=== PATIENT | male | born 1990 ===

== ENCOUNTER 2017-06-17 17:04 | Observation (INO) | payer BC, MEDICAID ==
--- NOTE | 2017-06-17 17:30 | ED PDOC ---
Arrival/HPI - General Chief Complaint: Abdominal Pain Time Seen by Provider: 06/17/17 17:19 Historian: Patient - History of Present Illness Narrative History of Present Illness (Text): 06/17/17 17:51 A 26 year old male presents to the emergency department complaining of epigastric discomfort since yesterday, after eating dinner last night, currently resolved. Reports relief with belching. Patient notes discomfort worse with movement. Notes family history of diabetes and gallstones. Patient denies any chest pain, back pain, shoulder pain, nausea, diarrhea, fever, urinary symptoms, cough or any other complaints at this time. Symptom Onset: Sudden Symptom Course: Unchanged Activities at Onset: Rest Context: Home Past Medical History - Provider Review Nursing Documentation Reviewed: Yes - Infectious Disease Hx of Infectious Diseases: None - Tetanus Immunization Tetanus Immunization: Unknown - Cardiac Hx Cardiac Disorders: No - Pulmonary Hx Respiratory Disorders: Yes Hx Asthma: Yes - Neurological Hx Neurological Disorder: No - HEENT Hx HEENT Disorder: No - Renal Hx Renal Disorder: No - Endocrine/Metabolic Hx Endocrine Disorders: No - Hematological/Oncological Hx Blood Disorders: No - Integumentary Hx Dermatological Disorder: No - Musculoskeletal/Rheumatological Hx Musculoskeletal Disorders: No - Gastrointestinal Hx Gastrointestinal Disorders: No - Genitourinary/Gynecological Hx Genitourinary Disorders: No - Psychiatric Hx Psychophysiologic Disorder: No Hx Depression: No Hx Emotional Abuse: No Hx Physical Abuse: No Hx Substance Use: No - Past Surgical History Past Surgical History: No Previous - Surgical History Hx Tonsillectomy: Yes - Anesthesia Hx Anesthesia: Yes Hx Anesthesia Reactions: No Hx Malignant Hyperthermia: No - Suicidal Assessment Feels Threatened In Home Enviroment: No Family/Social History - Physician Review Nursing Documentation Reviewed: Yes Family/Social History: No Known Family HX Smoking Status: Light Smoker < 10 Cigarettes Daily Hx Alcohol Use: Yes Frequency of alcohol use: Socially Hx Substance Use: No Hx Substance Use Treatment: No Allergies/Home Meds Allergies/Adverse Reactions: Allergies No Known Allergies Allergy (Verified 06/17/17 17:05) Home Medications: Home Meds Medication Instructions Recorded Confirmed No Known Home Med 06/17/17 06/17/17 Review of Systems - Review of Systems Constitutional: absent: Fatigue, Fevers Eyes: absent: Vision Changes ENT: absent: Hearing Changes, Sore Throat, Rhinorrhea Respiratory: absent: SOB, Cough Cardiovascular: absent: Chest Pain, Edema, Calf Pain, HAWKINS Gastrointestinal: Abdominal Pain, Other (epigastric discomfort). absent: Diarrhea, Nausea, Hematochezia Genitourinary Male: absent: Dysuria, Frequency, Hematuria Musculoskeletal: absent: Back Pain, Neck Pain, Other (shoulder pain) Skin: absent: Rash Neurological: absent: Headache, Dizziness, Focal Weakness, Disequilibrium Endocrine: absent: Polyuria Physical Exam - Physical Exam Narrative Physical Exam (Text): 06/17/17 17:48 Head: Atraumatic. Normocephalic. Eyes: PERRL. EOMI. Conjunctivae are not pale. ENT: Mucous membranes are moist and intact. Oropharynx is clear and symmetric. Neck: Supple. Full ROM. No JVD. No lymphadenopathy. Cardiovascular: tachycardic. Distal pulses are 2+ and symmetric. Pulmonary/Chest: No evidence of respiratory distress. Clear to auscultation bilaterally. No wheezing, rales or rhonchi. Abdominal: obese. no focal tenderness. Back: No CVA tenderness. Extremities: No edema. No cyanosis. No clubbing. Full range of motion in all extremities. No calf tenderness. Skin: Skin is warm and dry. No petechiae. No purpura. Neurological: Alert, awake, and oriented to person, place, time, and situation. Normal speech. Motor and sensory exam intact. Psychiatric: Good eye contact. Normal interaction, affect, and behavior. Vital Signs Reviewed: Yes Vital Signs Temp Pulse Resp BP Pulse Ox 06/17/17 17:10 98.2 F 107 H 21 150/82 97 Temperature: Afebrile Blood Pressure: Normal Pulse: Tachycardic Respiratory Rate: Normal Appearance: Positive for: Well-Appearing, Non-Toxic, Comfortable Pain Distress: None Mental Status: Positive for: Alert and Oriented X 3 Medical Decision Making ED Course and Treatment: 06/17/17 17:27 Impression: A 26 year old male with epigastric discomfort. Differential Diagnosis included but are not limited to: gastritis vs. reflux vs. gallstones Plan: -- EKG -- chest xray -- US abdomen -- labs -- Urinalysis -- Pepcid, IV fluids -- Reassess and disposition Progress Notes: Patient states symptoms are associated with belching sensation. On exam, no respiratory distress. No pleuritic pain. No calf pain or swelling. Given acute onset of upper abdominal discomfort, ultrasound ordered. 06/17/17 18:29 chest xray: Creator : Dario Li MD IMPRESSION: No active disease. US Abdomen Complete FINDINGS: Liver: Liver with increased echogenicity. Liver is 16.5 cm. No intrahepatic bile duct dilation. Gallbladder: Gallbladder wall thickness is 2.8 mm. No gallstones. Common bile duct: Common bile duct 3.3 mm. No stones. No dilation. Pancreas: Unremarkable as visualized. Kidneys: Right kidney is 12.4 cm. Left kidney is 11.5 cm. No stones. No hydronephrosis. Spleen: Spleen is 9.8 cm. Aorta: Aorta and IVC are not well seen. Inferior vena cava: See above. IMPRESSION: Hepatic steatosis. No gallstones or biliary obstruction. Limited study secondary to obesity. Dictated and Authenticated by: Kye Zuniga MD 06/17/2017 7:13 PM Eastern Time ([place] & [place]) Patient's LFTs elevated. Ultrasound reading reviewed. No prior recent labs for comparison. Hyperglycemia, although denies known hx of diabetes. Patient's EKG unremarkable. Denies chest pain or sob. Pain peristent, waxes and wanes. Due to persistent pain with abnormal lfts, ultrasound, will admit for observation, gi consultation. D/W Dr. Thien Henley covering for hospitalist. - Lab Interpretations Lab Results: 06/17/17 17:50 06/17/17 17:50 Lab Results 06/17/17 17:50: Sodium 137, Potassium 4.4, Chloride 97 L, Carbon Dioxide 30, Anion Gap 15, BUN 11, Creatinine 0.5 L, Est GFR ( Amer) > 60, Est GFR ( Non-Af Amer) > 60, Random Glucose 286 H, Calcium 9.5, Total Bilirubin 0.9, AST 187 H, ALT 229 H, Alkaline Phosphatase 84, Lactate Dehydrogenase 847 H, Total Creatine Kinase 54, Troponin I < 0.01, Total Protein 8.0, Albumin 3.8, Globulin 4.2, Albumin/Globulin Ratio 0.9 L, Amylase 59, Lipase 59 06/17/17 17:50: PT 11.7, INR 1.03, APTT 30.4 06/17/17 17:50: WBC 10.1, RBC 4.96, Hgb 13.5 L, Hct 42.0, MCV 84.7, MCH 27.2, MCHC 32.1, RDW 14.5, Plt Count 222, MPV 10.7, Gran % 70.3 H, Lymph % (Auto) 19.9 L, [place] % (Auto) 4.9, Eos % (Auto) 4.7, Baso % (Auto) 0.2, Gran # 7.11 H, Lymph # (Auto) 2.0, [place] # (Auto) 0.5, Eos # (Auto) 0.5, Baso # (Auto) 0.02 I have reviewed the lab results: Yes - RAD Interpretation Radiology Orders: 06/17/17 17:37 CHEST PORTABLE [RAD] Stat ABDOMEN COMPLETE [US] Stat - EKG Interpretation EKG Interpretation (Text): 06/17/17 19:30 EKG at 17:37 sinus tachycardia rate of [address] elevations Interpreted by ED Physician: Yes Type: 12 lead EKG - Medication Orders Current Medication Orders: Heparin Sodium (Porcine) (Heparin) 5,000 units SC Q12 MAYRA PRN Reason: Protocol Sodium Chloride (Sodium Chloride 0.9%) 1,000 mls @ 100 mls/hr IV .Q10H MAYRA Last Admin: 06/17/17 18:03 Dose: 100 mls/hr eMAR Start Stop Document 06/17/17 18:03 GMD (Rec: 06/17/17 18:03 [facility]) Intravenous Solution Start Date 06/17/17 Start Time 18:03 Insulin Human Lispro (Humalog Med) 0 units SC ACHS MAYRA PRN Reason: Protocol Pantoprazole Sodium (Protonix Ec Tab) 40 mg PO 0600 MAYRA Discontinued Medications Famotidine (Pepcid) 20 mg IVP STAT STA Stop: 06/17/17 17:38 Last Admin: 06/17/17 18:03 Dose: 20 mg IVP Administration Document 06/17/17 18:03 GMD (Rec: 06/17/17 18:03 D [facility]) Charges for Administration # of IVP Administrations 1 Sodium Chloride (Sodium Chloride 0.9%) 500 mls @ 1,000 mls/hr IV .Q30M STA Stop: 06/17/17 21:53 - Scribe Statement The provider has reviewed the documentation as recorded by the Scribe Belqes Mee Provider Lenny Attestation: All medical record entries made by the Lenny were at my direction and personally dictated by me. I have reviewed the chart and agree that the record accurately reflects my personal performance of the history, physical exam, medical decision making, and the department course for this patient. I have also personally directed, reviewed, and agree with the discharge instructions and disposition. Disposition/Present on Arrival - Present on Arrival Any Indicators Present on Arrival: Yes History of DVT/PE: No History of Uncontrolled Diabetes: Yes Urinary Catheter: No History of Decub. Ulcer: No History Surgical Site Infection Following: None - Disposition
[2017-06-17] MEDS: Sodium Chloride 0.9% 1,000 ML IV SCH (18:03)
[2017-06-17 18:09] LABS: BASO # 0.02 K/mm3 (0.0-2.0); BASO % 0.2 % (0.0-3.0); EOS # 0.5 (0.0-0.7); EOS % 4.7 % (1.5-5.0); GRAN # 7.11 (1.4-6.5); GRAN % 70.3 % (50.0-68.0); HEMOGLOBIN 13.5 g/dL (14.0-18.0); LYMPH % 19.9 % (22.0-35.0); MEAN CELL VOLUME 84.7 fl (80.0-105.0); MEAN CORPUSCULAR HEMOGLOBIN 27.2 pg (25.0-35.0); MEAN CORPUSCULAR HGB CONC 32.1 g/dl (31.0-37.0); MEAN PLATELET VOLUME 10.7 fl (7.0-11.0); MONO # 0.5 (0.1-0.6); MONO % 4.9 % (1.0-6.0); RBC 4.96 10^6/uL (3.5-6.1); RED CELL DISTRIBUTION WIDTH 14.5 % (11.5-14.5); WHITE BLOOD COUNT 10.1 10^3/ul (4.5-11.0)
--- NOTE | 2017-06-17 18:27 | RAD ---
HISTORY: Shortness of breath. COMPARISON: No prior. FINDINGS: LUNGS: No active pulmonary disease. PLEURA: No significant pleural effusion identified, no pneumothorax apparent. CARDIOVASCULAR: No radiographic findings to suggest acute or significant cardiovascular disease. OSSEOUS STRUCTURES: No significant abnormalities. VISUALIZED UPPER ABDOMEN: Normal. OTHER FINDINGS: None. IMPRESSION: No active disease.
[2017-06-17 18:31] LABS: TROPONIN I < 0.01 ng/mL
[2017-06-17 18:32] LABS: ALB/GLOB RATIO 0.9 (1.1-1.8); ALBUMIN 3.8 g/dL (3.0-4.8); ALT/SGPT 229 U/L (7-56); AMYLASE 59 U/L (35-125); AST/SGOT 187 U/L (17-59); BLOOD UREA NITROGEN 11 mg/dL (7-21); CALCIUM 9.5 mg/dL (8.4-10.5); GFR AFRICAN-AMERICAN > 60; GFR NON-AFRICAN AMERICAN > 60; LIPASE 59 U/L (23-300)
[2017-06-17 18:34] LABS: INR 1.03 (0.93-1.08); PARTIAL THROMBOPLASTIN TIME 30.4 Seconds (25.1-36.5); PROTHROMBIN TIME 11.7 SECONDS (9.4-12.5)
[2017-06-17] MEDS ORDERED: Sodium Chloride 0.9% 500 ML IV STA (21:24)
--- NOTE | 2017-06-17 22:14 | CP.PCM.HP ---
<Michael Adams - Last Filed: 06/17/17 23:17> History of Present Illness - History of Present Illness History of Present Illness: 26 year old male with past medical history of obesity presents with abdominal pain. Patient states he has pain located in his right upper abdomen that began around 10 pm yesterday. He describes the pain as a 7/10 and says he has a bloated sensation. Patient denies any radiation of the pain.He states he has some relief when he burps and some antacids have helped. Last meal before when he felt the initial pain yesterday was eggs and rice. Today around 1pm he ate [employer] and it did not worsen the pain. Patient states he had similar episode before for which he received some pain medication. Patient does not report any chest pain, shortness of breath, nausea, vomiting, fever, chills, sore throat or any other complaints at this time. 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 Present on Admission - Present on Admission Any Indicators Present on Admission: No Review of Systems - Constitutional Constitutional: absent: Anorexia, Chills, Fatigue, Fever, Headache, Increased Appetite, Weight Loss - EENT Eyes: absent: Blurred Vision, Change in Vision Ears: absent: Disequilibrium, Dizziness Nose/Mouth/Throat: absent: Nasal Congestion, Nasal Discharge, Sore Throat - Cardiovascular Cardiovascular: absent: Chest Pain, Dyspnea, Dyspnea on Exertion - Respiratory Respiratory: absent: Cough, Dyspnea, Dyspnea on Exertion - Gastrointestinal Gastrointestinal: Abdominal Pain. absent: Change in Bowel Habits, Coffee Ground Emesis, Diarrhea, Dysphagia, Heartburn, Nausea, Vomiting - Genitourinary Genitourinary: absent: Change in Urinary Stream, Difficulty Urinating - Musculoskeletal Musculoskeletal: absent: Arthralgias, Numbness, Tingling Past Patient History - Infectious Disease Hx of Infectious Diseases: None - Tetanus Immunizations Tetanus Immunization: Unknown - Past Social History Smoking Status: Light Smoker < 10 Cigarettes Daily - CARDIAC Hx Cardiac Disorders: No - PULMONARY Hx Respiratory Disorders: Yes Hx Asthma: Yes - NEUROLOGICAL Hx Neurological Disorder: No - HEENT Hx HEENT Problems: No - RENAL Hx Chronic Kidney Disease: No - ENDOCRINE/METABOLIC Hx Endocrine Disorders: No - HEMATOLOGICAL/ONCOLOGICAL Hx Blood Disorders: No - INTEGUMENTARY Hx Dermatological Problems: No - MUSCULOSKELETAL/RHEUMATOLOGICAL Hx Musculoskeletal Disorders: No - GASTROINTESTINAL Hx Gastrointestinal Disorders: No - GENITOURINARY/GYNECOLOGICAL Hx Genitourinary Disorders: No - PSYCHIATRIC Hx Psychophysiologic Disorder: No Hx Depression: No Hx Emotional Abuse: No Hx Physical Abuse: No Hx Substance Use: No - SURGICAL HISTORY Hx Tonsillectomy: Yes - ANESTHESIA Hx Anesthesia: Yes Hx Anesthesia Reactions: No Hx Malignant Hyperthermia: No Meds Allergies/Adverse Reactions: Allergies Allergy/AdvReac Type Severity Reaction Status Date / Time No Known Allergies Allergy Verified 06/17/17 17:05 Physical Exam - Constitutional Appears: Non-toxic, No Acute Distress Additional comments: Obese - Head Exam Head Exam: ATRAUMATIC, NORMAL INSPECTION, NORMOCEPHALIC - Eye Exam Eye Exam: EOMI, Normal appearance - ENT Exam ENT Exam: Mucous Membranes Moist - Neck Exam Neck exam: Negative for: Lymphadenopathy, Tenderness - Respiratory Exam Respiratory Exam: Clear to Auscultation Bilateral, NORMAL BREATHING PATTERN - Cardiovascular Exam Cardiovascular Exam: REGULAR RHYTHM, +S1, +S2 - GI/Abdominal Exam GI & Abdominal Exam: Normal Bowel Sounds, Tenderness. absent: Guarding Additional comments: RUQ tenderness to palpation, negative murphys - Extremities Exam Extremities exam: Positive for: pedal edema, pedal pulses present - Neurological Exam Neurological exam: Alert, Oriented x3 - Skin Skin Exam: Normal Color Results - Vital Signs Recent Vital Signs: Last Vital Signs Temp 98.2 F 06/17/17 17:10 Pulse 107 H 06/17/17 17:10 Resp 21 06/17/17 17:10 BP 150/82 06/17/17 17:10 Pulse Ox 97 06/17/17 17:10 - Labs Result Diagrams: 06/17/17 17:50 06/17/17 17:50 Assessment & Plan - Assessment and Plan (Free Text) Assessment: 26 year old male with past medical history of obesity presents with abdominal pain. Plan: 1. Persistent Abdominal Pain -EKG pending official read -Chest xray pending official read -Abdominal US: Hepatic steatosis. No gallstones or biliary obstruction. Limited study secondary to obesity. -GI consulted, Deedee, markie recs -liquid diet -toradol for Pain PRN 2. Elevated LFTs -likely secondary to hepatic steatosis or possible hypertriglyerides -GI consulted, markie Mark recs -NS@100 -lipid panel pending 3. Elevated Blood Sugar -Hemoglobin A1C pending -ISS medium with ACHS -continue to monitor GI/DVT -protonix -heparin SC <Garrett Henley - Last Filed: 06/18/17 02:19> Results - Vital Signs Recent Vital Signs: Last Vital Signs Temp 98.2 F 06/17/17 17:10 Pulse 98 H 06/17/17 22:45 Resp 18 06/17/17 22:45 BP 145/86 06/17/17 22:45 Pulse Ox 97 06/17/17 22:45 - Labs Result Diagrams: 06/17/17 17:50 06/17/17 17:50 Labs: Laboratory Results - last 24 hr 06/17/17 22:01 Triglycerides 313 H Cholesterol 195 LDL Cholesterol Direct 123 HDL Cholesterol 28 L
--- NOTE | 2017-06-17 23:25 | CARD ---
APPROVED REPORT EKG Measurement Heart [id number] <Conclusion> Sinus tachycardia Otherwise normal ECG
[2017-06-18 00:23] LABS: HDL CHOLESTEROL 28 mg/dL (29-60)
[2017-06-18 00:33] LABS: LDL CHOLESTEROL 123 mg/dL (0-129)
[2017-06-18 05:28] VITALS: BMI 65.7
[2017-06-18] MEDS: Sodium Chloride 0.9% 1,000 ML IV SCH ×2 (05:38→06:06)
[2017-06-18] MEDS ORDERED: Pantoprazole 40 mg EC Tab PO SCH (06:00)
[2017-06-18 07:58] VITALS: BP 117/68; PULSE 103; RESP 20; TEMP 97.8; O2SAT 93
[2017-06-18] MEDS: Insulin Lispro (humaLOG) MEDIUM Coverage SC SCH ×2 (08:00→11:50)
--- NOTE | 2017-06-18 09:17 | US ---
HISTORY: Upper abdominal pain. COMPARISON: None. TECHNIQUE: Sonographic evaluation of the abdomen. FINDINGS: LIVER: Measures 11.2 x 16.5 cm. Hepatopedal blood flow. Fatty infiltration manifest ultrasonographically as increased elects echogenicity of the liver parenchyma. No mass. No intrahepatic bile duct dilatation. GALLBLADDER: Play classical music COMMON BILE DUCT: Measures 3.3 mm. No stones. No dilatation. PANCREAS: Unremarkable as visualized. No mass. No ductal dilatation. RIGHT KIDNEY: Measures 6.5 x 12.4cm. Normal echogenicity. No calculus, mass, or hydronephrosis. LEFT KIDNEY: Measures 5.4 x 11.5cm. Normal echogenicity. No calculus, mass, or hydronephrosis. SPLEEN: Normal in size and contour. No mass. AORTA: No aneurysmal dilatation. IVC: Unremarkable. OTHER FINDINGS: None. IMPRESSION: Hepatomegaly/hepatic steatosis. Otherwise unremarkable study.
[2017-06-18 09:25] LABS: BASO # 0.04 K/mm3 (0.0-2.0); BASO % 0.4 % (0.0-3.0); EOS # 0.5 (0.0-0.7); EOS % 5.6 % (1.5-5.0); GRAN # 6.56 (1.4-6.5); GRAN % 68.8 % (50.0-68.0); LYMPH % 20.5 % (22.0-35.0); MEAN CELL VOLUME 85.5 fl (80.0-105.0); MEAN CORPUSCULAR HEMOGLOBIN 27.3 pg (25.0-35.0); MEAN CORPUSCULAR HGB CONC 31.9 g/dl (31.0-37.0); MEAN PLATELET VOLUME 11.2 fl (7.0-11.0); MONO # 0.5 (0.1-0.6); MONO % 4.7 % (1.0-6.0); RBC 4.77 10^6/uL (3.5-6.1); RED CELL DISTRIBUTION WIDTH 14.6 % (11.5-14.5); WHITE BLOOD COUNT 9.5 10^3/ul (4.5-11.0)
[2017-06-18 09:42] LABS: ALB/GLOB RATIO 0.9 (1.1-1.8); ALBUMIN 3.5 g/dL (3.0-4.8); ALT/SGPT 244 U/L (7-56); AST/SGOT 233 U/L (17-59); BLOOD UREA NITROGEN 10 mg/dL (7-21); CALCIUM 9.4 mg/dL (8.4-10.5); GFR AFRICAN-AMERICAN > 60; GFR NON-AFRICAN AMERICAN > 60
[2017-06-18] MEDS ORDERED: Enoxaparin 40 mg Syringe SC SCH (10:30)
--- NOTE | 2017-06-18 11:59 | CON ---
DATE: 06/18/2017 HISTORY OF PRESENT ILLNESS: I saw Mr. Del Rosario this morning. He is a 26-year-old morbidly obese male with past medical history consisting only of transitory excessive abdominal pain in the area of the right upper quadrant. Patient denies any history of gallstones, appendicitis, surgery except for tonsillectomy or any other medical problems including diabetes, hypertension, etc. Patient was never tested for sleep apnea. Patient indicated acute onset of abdominal pain in the right upper quadrant, which lasted several hours, after he ate a mail. Denied any hematemesis or rectal bleeding. He has not had a history of acid reflux. He also related that the right upper quadrant discomfort was relieved somewhat after burping. The pain was described as right upper quadrant going to the epigastric area. Note that, he does not practice antireflux precautions and he drinks significantly before meals on a daily basis. PHYSICAL EXAMINATION: VITAL SIGNS: I reviewed this patient's vital signs. HEENT: Noncontributory. LUNGS: Decreased breath sounds at the bases. HEART: Irregular rhythm. ABDOMEN: Protuberant. No tenderness elicited in any quadrant. Bowel sounds are normal. LABORATORY DATA: Ultrasound reviewed. The bile duct is appears within normal limits, no stones. Review of laboratory data indicates H and H of 13 and 42. INR within normal limits. Review of CMP indicates triglycerides elevated to the level of 313, cholesterol 195, LDL 123. Patient has normal bilirubin with a glucose of 286. AST/ALT ratio 187/229, alkaline phosphatase 84. Last lipase is 59. Chest x-ray was negative for any active disease. OVERALL ASSESSMENT: This is a 26-year-old white male morbidly obese, evaluated for transitory right upper quadrant epigastric discomfort. On examination, patient had denied any abdominal pain anywhere, but that also he does not practice antireflux precautions. Review of liver function test indicates elevated transaminases. He has a negative ultrasound, would suggest these are elevated on the basis of hepatic steatosis. Note that, also the patient's glucose is in diabetic range. In order to clarify this further, liver biopsy might be contemplated on an outpatient basis. Also, would suggest a hepatitis profile for completeness sake. I reviewed the issues regarding the patient labs at the bedside and I suggested the patient develop a relationship with a primary care physician. He expressed a desire to be evaluated at a bariatric treatment center for weight control. Note that, his last weight was pushing 390. I advised him to possibly consult the [facility] since they have a bariatric center located there and results have been positive uniformly. Since the patient has no symptoms, suggest possibly discharge today with advise on antireflux precautions and use a H2 franko or proton pump inhibitor for epigastric related pain. Note that, he must see a PCP and GI on an outpatient basis. Morgan Mark DO, PhD MICAELA
[2017-06-19 08:17] LABS: HEPATITIS B SURFACE AG Negative (NEGATIVE)
[2017-06-19 08:25] LABS: HEPATITIS A IGM NEGATIVE (NEGATIVE); HEPATITIS B CORE AB NEGATIVE (NEGATIVE)
[2017-06-19 08:35] LABS: HEPATITIS C ANTIBODY NEGATIVE (NEGATIVE)
--- NOTE | 2017-06-19 17:07 | CP.PCM.DIS ---
Provider - Provider Date of Admission: 06/17/17 21:23 Attending physician: Matilda Hollingsworth MD Primary care physician: Sharifa Mace APN Consults: GI: Deedee Time Spent in preparation of Discharge (in minutes): 42 Diagnosis - Discharge Diagnosis (1) GERD (gastroesophageal reflux disease) Status: Acute Hospital Course - Lab Results Lab Results: Most Recent Lab Values WBC 9.5 10^3/ul (4.5-11.0) 06/18/17 09: RBC 4.77 10^6/uL (3.5-6.1) 06/18/17 09:22 Hgb 13.0 g/dL (14.0-18.0) L 06/18/17 09: Hct 40.8 % (42.0-52.0) L 06/18/17: MCV 85.5 fl (80.0-105.0) 06/18/17 09: MCH 27.3 pg (25.0-35.0) 06/18/17: MCHC 31.9 g/dl (31.0-37.0) 06/18/17 09: RDW 14.6 % (11.5-14.5) H 06/18/17 09: Plt Count 221 10^3/uL (120.0-450.0) 06/18/17:22 MPV 11.2 fl (7.0-11.0) H 06/18/17 09:22 Gran % 68.8 % (50.0-68.0) H 06/18/17 09:22 Lymph % (Auto) 20.5 % (22.0-35.0) L 06/18/17 09:22 [place] % (Auto) 4.7 % (1.0-6.0) 06/18/17 09:22 Eos % (Auto) 5.6 % (1.5-5.0) H 06/18/17:22 Baso % (Auto) 0.4 % (0.0-3.0) 06/18/17:22 Gran # 6.56 (1.4-6.5) H 06/18/17 09: Lymph # (Auto) 2.0 (1.2-3.4) 06/18/17 09:22 [place] # (Auto) 0.5 (0.1-0.6) 06/18/17 09:22 Eos # (Auto) 0.5 (0.0-0.7) 06/18/17 09:22 Baso # (Auto) 0.04 K/mm3 (0.0-2.0) 06/18/17 09:22 PT 11.7 SECONDS (9.4-12.5) 06/17/17 17:50 INR 1.03 (0.93-1.08) 06/17/17 17:50 APTT 30.4 Seconds (25.1-36.5) 06/17/17 17:50 Sodium 140 mmol/L (132-148) 06/18/17 09:22 Potassium 4.6 mmol/L (3.6-5.0) 06/18/17 09:22 Chloride 99 mmol/L (98-107) 06/18/17 09:22 Carbon Dioxide 31 mmol/L (21-33) 06/18/17 09:22 Anion Gap 15 (10-20) 06/18/17 09:22 BUN 10 mg/dL (7-21) 06/18/17 09:22 Creatinine 0.6 mg/dl (0.8-1.5) L 06/18/17 09:22 Est GFR ( Amer) > 60 06/18/17 09:22 Est GFR (Non-Af Amer) > 60 06/18/17 09:22 POC Glucose (mg/dL) 132 mg/dL (65-110) H 06/18/17 11:21 Random Glucose 155 mg/dL (70-110) H 06/18/17 09:22 Hemoglobin A1c 8.0 % (4.2-6.5) H 06/17/17 23:00 Calcium 9.4 mg/dL (8.4-10.5) 06/18/17 09:22 Total Bilirubin 1.3 mg/dL (0.2-1.3) 06/18/17 09:22 AST 233 U/L (17-59) H D 06/18/17 09:22 ALT 244 U/L (7-56) H 06/18/17 09:22 Alkaline Phosphatase 76 U/L (38-126) 06/18/17 09:22 Lactate Dehydrogenase 847 U/L (333-699) H 06/17/17 17:50 Total Creatine Kinase 54 U/L (35-230) 06/17/17 17:50 Troponin I < 0.01 ng/mL 06/17/17 17:50 Total Protein 7.2 g/dL (5.8-8.3) 06/18/17 09:22 Albumin 3.5 g/dL (3.0-4.8) 06/18/17 09:22 Globulin 3.7 gm/dL 06/18/17 09:22 Albumin/Globulin Ratio 0.9 (1.1-1.8) L 06/18/17 09:22 Triglycerides 313 mg/dL (35-160) H 06/17/17 22:01 Cholesterol 195 mg/dL (130-200) 06/17/17 22:01 LDL Cholesterol Direct 123 mg/dL (0-129) 06/17/17 22:01 HDL Cholesterol 28 mg/dL (29-60) L 06/17/17 22:01 Amylase 59 U/L (35-125) 06/17/17 17:50 Lipase 59 U/L (23-300) 06/17/17 17:50 Hepatitis A IgM Ab Negative (NEGATIVE) 06/18/17 06:45 Hep Bs Antigen Negative (NEGATIVE) 06/18/17 06:45 Hep B Core IgM Ab Negative (NEGATIVE) 06/18/17 06:45 Hepatitis C Antibody Negative (NEGATIVE) 06/18/17 06:45 - Hospital Course Hospital Course: 26 year old male with past medical history of obesity presented with abdominal pain. He described the pain as a 7/10 and says he has a bloated sensation. Patient was noted to have tachycardia but was afebrile and was otherwise HDS. He was found to hyperglycemia and elevated LFT's on CMP. Sliding scale insulin was started with accuchecks. An EKG showed sinus tachycardia. A chest x-ray showed no active disease. An abdominal ultrasound showed hepatic steatosis. Patient was started on liquid diet that was progressed to regular diet with good tolerance. He was given toradol for pain control, protonix for GI prophylaxis and heparin for DVT prophylaxis. GI was consulted and recommended patient be discharged on anti-reflux therapy. He was given a list of primary care doctors and agreed to find one to follow up with. He was discharged on 02/23 with prescriptions for protonix and metformin with instructions to follow up with a PCP of his choice. - Date & Time of H&P Date of H&P: 06/17/17 Time of H&P: 22:14 Discharge Exam - Head Exam Head Exam: ATRAUMATIC, NORMAL INSPECTION, NORMOCEPHALIC - Eye Exam Eye Exam: EOMI, Normal appearance, PERRL - Neck Exam Neck exam: Full Rom - Respiratory Exam Respiratory Exam: Clear to PA & Lateral, NORMAL BREATHING PATTERN, UNREMARKABLE - Cardiovascular Exam Cardiovascular Exam: REGULAR RHYTHM - GI/Abdominal Exam GI & Abdominal Exam: Normal Bowel Sounds, Unremarkable - Extremities Exam Extremities exam: full ROM, normal capillary refill, pedal pulses present Additional comments: Negative homans sign b/l - Neurological Exam Neurological exam: Alert, CN II-XII Intact, Normal Gait, Oriented x3, Reflexes Normal - Psychiatric Exam Psychiatric exam: Normal Affect, Normal Mood - Skin Skin Exam: Dry, Intact, Normal Color, Warm Discharge Plan - Discharge Medications Prescriptions: metFORMIN [glucOPHAGE] 500 mg PO BID #28 tab Pantoprazole [Protonix EC Tab] 40 mg PO 0600 #14 ect - Follow Up Plan Condition: GOOD Disposition: HOME/ ROUTINE Instructions: How to Check Your Blood Sugar (DC), Diabetic Foot Care (DC), Diabetes Mellitus Type 2 in Adults (DC), Basic Carbohydrate Counting (DC), Liver Profile (GEN), Gastroesophageal Reflux Disease (DC), Acute Abdominal Pain (DC), Non-Alcoholic Fatty Liver Disease (DC), Hyperlipidemia (DC), Epigastric Pain (GEN) Additional Instructions: Please seek primary care physician upon discharge, several contact numbers for PCP's in [place] have been provided for you Please take all medications as prescribed If your symptoms should persist or worsen, please seek emergency medical attention Referrals: Becca Mcmanus MD [Staff Provider] - Sacha Arreguin MD [Staff Provider] - Sekou Waters MD [Staff Provider] - Rafael Brand MD [Staff Provider] - Dario Mujica DO [Staff Provider] - Sharifa Mace APN [Primary Care Provider] -
== END 2017-06-18 15:51 | disposition home or self-care (01) ==
LOC: ED 17:04 → ERH 21:23 → 5RNO 23:34
PROVIDERS: ADMIT Internal Medicine; ATTEND Internal Medicine
DX: K21.9 Gastro-esophageal reflux disease without esophagitis (principal); R73.9 Hyperglycemia, unspecified; E66.01 Morbid (severe) obesity due to excess calories; J45.909 Unspecified asthma, uncomplicated; K76.0 Fatty (change of) liver, not elsewhere classified; Z83.3 Family history of diabetes mellitus; F17.210 Nicotine dependence, cigarettes, uncomplicated; Z68.44 Body mass index [BMI] 60.0-69.9, adult
CPT/HCPCS: 36415; 71045; 76700; 80053; 80061; 80074; 82150; 82550; 82948; 83036; 83615; 83690; 84484; 85025; 85610; 85730; 93005; 96374; 99285; G0378; J1644; J1650; J7040

== ENCOUNTER 2017-08-12 18:37 | Emergency (ER) | payer BC ==
[2017-08-12 18:37] VITALS: BMI 65.7
[2017-08-12] MEDS ORDERED: cefTRIAXone (Rocephin) 1 gm Inj IM STA (19:11)
[2017-08-12] MEDS ORDERED: Oxycodone/Acetaminophen 5/325 mg Tab PO STA (19:11)
[2017-08-12] MEDS ORDERED: Tmp-Smz 800 mg-160 mg DS Tab PO STA (19:11)
--- NOTE | 2017-08-12 19:16 | ED PDOC ---
Arrival/HPI - General Chief Complaint: Abnormal Skin Integrity Time Seen by Provider: 08/12/17 19:10 Historian: Patient - History of Present Illness Narrative History of Present Illness (Text): 08/12/17 19:14 26 year old male, newly onset of diabetes and on the oral medication, nkda, complaining of multiple skin abscess on the body x 2 days. Pt. stated that it started off as a small pimple, then the redness begin, no fever or chills, no headache or night sweat, no rash, has closely follow up with the pmd and opthalmologist, no chest pain or shortness of breath, no palpitation, no other medical or psychological complaints. Past Medical History - Provider Review Nursing Documentation Reviewed: Yes - Infectious Disease Hx of Infectious Diseases: None - Tetanus Immunization Tetanus Immunization: Unknown - Cardiac Hx Cardiac Disorders: No - Pulmonary Hx Respiratory Disorders: Yes Hx Asthma: Yes - Neurological Hx Neurological Disorder: No - HEENT Hx HEENT Disorder: No - Renal Hx Renal Disorder: No - Endocrine/Metabolic Hx Endocrine Disorders: No - Hematological/Oncological Hx Blood Disorders: No - Integumentary Hx Dermatological Disorder: No - Musculoskeletal/Rheumatological Hx Musculoskeletal Disorders: No - Gastrointestinal Hx Gastrointestinal Disorders: No - Genitourinary/Gynecological Hx Genitourinary Disorders: No - Psychiatric Hx Psychophysiologic Disorder: No Hx Depression: No Hx Emotional Abuse: No Hx Physical Abuse: No Hx Substance Use: No - Past Surgical History Past Surgical History: No Previous - Surgical History Hx Tonsillectomy: Yes - Anesthesia Hx Anesthesia: Yes Hx Anesthesia Reactions: No Hx Malignant Hyperthermia: No - Suicidal Assessment Feels Threatened In Home Enviroment: No Family/Social History - Physician Review Nursing Documentation Reviewed: Yes Family/Social History: Unknown Family HX Smoking Status: Unknown If Ever Smoked Hx Alcohol Use: No Hx Substance Use: No Hx Substance Use Treatment: No Allergies/Home Meds Allergies/Adverse Reactions: Allergies No Known Allergies Allergy (Verified 08/12/17 19:06) Review of Systems - Review of Systems Constitutional: absent: Fatigue, Fevers Eyes: absent: Vision Changes ENT: absent: Hearing Changes Respiratory: absent: SOB, Cough Cardiovascular: absent: Chest Pain Gastrointestinal: absent: Abdominal Pain, Nausea, Vomiting Skin: Rash, Skin Lesions, Cellulitis. absent: Pruritis, Laceration, Abscess, Ulcer Neurological: absent: Headache, Dizziness Psychiatric: absent: Anxiety, Depression, Suicidal Ideation Physical Exam Vital Signs Reviewed: Yes Vital Signs Temp Pulse Resp BP Pulse Ox 08/12/17 22:09 97 H 16 133/92 H 99 08/12/17 20:09 98.6 F 108 H 08/12/17 19:33 117 H 08/12/17 19:00 98.9 F 116 H 18 121/86 97 Temperature: Afebrile Blood Pressure: Normal Pulse: Tachycardic Respiratory Rate: Normal Appearance: Positive for: Well-Appearing, Non-Toxic, Comfortable Pain Distress: Moderate Mental Status: Positive for: Alert and Oriented X 3 - Systems Exam Head: Present: Atraumatic, Normocephalic Pupils: Present: PERRL Extroacular Muscles: Present: EOMI Conjunctiva: Present: Normal Mouth: Present: Moist Mucous Membranes Neck: Present: Normal Range of Motion Respiratory/Chest: Present: Clear to Auscultation, Good Air Exchange. No: Respiratory Distress, Accessory Muscle Use Cardiovascular: Present: Regular Rate and Rhythm, Normal S1, S2. No: Murmurs Abdomen: No: Tenderness, Distention, Peritoneal Signs Back: Present: Normal Inspection Upper Extremity: Present: Normal Inspection. No: Cyanosis, Edema Lower Extremity: Present: Normal Inspection. No: Edema Neurological: Present: GCS=15, Speech Normal, Motor Func Grossly Intact, Gait Normal, Memory Normal Skin: Present: Warm, Dry, Rashes (visibel furunle lesion noted on the lt. flank/ rt. lower back and lt. medial thigh with approx. 3cm diameter erythematous, no streaking, no ulcers, no bullseye or target signs. ), Normal Color Psychiatric: Present: Alert, Oriented x 3, Normal Insight, Normal Concentration Medical Decision Making ED Course and Treatment: 08/12/17 19:13 -Rocephine IM/bactrim ds/motrin/percocet -observe and reassess 08/12/17 21:05 -Labs are non-significant with no elevation of wbc, Glucose 429 (IV insulin and IVF ordered, corrected sodium should be around 136-139) -Observe and reassess 08/12/17 23:20 -Vital are stable, Labs repeated and Na corrected, Potassium 3.0 with potassium chloride 40meq po ordered. -FS 287 -Discharge home with keflex, bactrim ds, motrin, wash with soap and water, continue your diabete medication, follow up with your own pmd and vp marketing/quality facilitator within 2 days, return to the ER for any new or worsening signs or symptoms. - Lab Interpretations Lab Results: 08/12/17 20:06 08/12/17 22:40 Lab Results 08/12/17 22:40: Sodium 134, Potassium 3.0 L, Chloride 98, Carbon Dioxide 17 L, Anion Gap 22 H, BUN 5 L, Creatinine 0.5 L, Est GFR ( Amer) > 60, Est GFR (Non-Af Amer) > 60, Random Glucose 318 H* D, Calcium 9.0, Total Bilirubin 1.2, AST 37, ALT 106 H, Alkaline Phosphatase 118, Total Protein 7.4, Albumin 3.5, Globulin 3.9, Albumin/Globulin Ratio 0.9 L 08/12/17 20:06: Sodium 131 L, Potassium 3.5 L, Chloride 92 L, Carbon Dioxide 19 L, Anion Gap 24 H, BUN 5 L, Creatinine 0.5 L, Est GFR ( Amer) > 60, Est GFR (Non-Af Amer) > 60, Random Glucose 429 H* D, Calcium 9.6, Total Bilirubin 1.4 H, AST 42, ALT 117 H, Alkaline Phosphatase 130 H D, Total Protein 7.9, Albumin 3.8, Globulin 4.0, Albumin/Globulin Ratio 0.9 L 08/12/17 20:06: WBC 10.7, RBC 5.13, Hgb 14.5, Hct 41.9 L, MCV 81.7 D, MCH 28.3 , MCHC 34.6, RDW 15.0 H, Plt Count 207, MPV 11.9 H, Gran % 67.4, Lymph % (Auto) 20.1 L, [place] % (Auto) 9.9 H, Eos % (Auto) 2.0, Baso % (Auto) 0.6, Gran # 7.24 H , Lymph # (Auto) 2.2, [place] # (Auto) 1.1 H, Eos # (Auto) 0.2, Baso # (Auto) 0.06 - Medication Orders Current Medication Orders: Sodium Chloride (Sodium Chloride 0.9%) 1,000 mls @ 500 mls/hr IV .Q2H MAYRA Last Admin: 08/12/17 21:27 Dose: 500 mls/hr eMAR Start Stop Document 08/12/17 21:27 MS (Rec: 08/12/17 21:27 MS [id number]) Intravenous Solution Start Date 08/12/17 Start Time 21:27 End Date 08/12/17 End time 23:27 Total Infusion Time 120 Discontinued Medications Ceftriaxone Sodium (Rocephin) 1 gm IM STAT STA PRN Reason: Protocol Stop: 08/12/17 19:12 Last Admin: 08/12/17 19:30 Dose: 1 gm IM Administration Charges Document 08/12/17 19:30 MS (Rec: 08/12/17 20:17 MS [id number]) Injection Site MAR Injection Site Left Deltoid Charges for Administration # of IM Administrations 1 Sodium Chloride (Sodium Chloride 0.9%) 1,000 mls @ 999 mls/hr IV .Q1H1M STA Stop: 08/12/17 20:55 Last Admin: 08/12/17 20:17 Dose: 999 mls/hr eMAR Start Stop Document 08/12/17 20:17 MS (Rec: 08/12/17 20:17 MS [id number]) Intravenous Solution Start Date 08/12/17 Start Time 20:17 End Date 08/12/17 End time 21:17 Total Infusion Time 60 Ibuprofen (Motrin Tab) 600 mg PO STAT STA Stop: 08/12/17 19:12 Last Admin: 08/12/17 19:31 Dose: 600 mg MAR Pain/Vitals Document 08/12/17 19:31 MS (Rec: 08/12/17 19:32 MS [id number]) Pain Reassessment Is This A Pain ReAssessment? No Sleep Is patient sleeping during reassessment? No Presence of Pain Presence of Pain Yes Pain Scale Used Pain Scale Used Numeric Location Left, Right or Bilateral Left Upper or Lower Lower Pain Location Body Site Back Description Intermittent Intensity 9 Pain Behavior Moaning Withdrawal from Touch Aggravating Factors Changing Position Insulin Human Regular (Humulin R) 8 units IV STAT STA Stop: 08/12/17 21:04 Last Admin: 08/12/17 21:26 Dose: 8 units eMAR Start Stop Document 08/12/17 21:26 MS (Rec: 08/12/17 21:26 MS [id number]) Intravenous Solution Start Date 08/12/17 Start Time 21:26 End Date 08/12/17 [facility] Blood Glucose Document 08/12/17 21:26 MS (Rec: 08/12/17 21:26 MS [id number]) Blood Glucose Finger Stick Blood Glucose (70-120) 429 Oxycodone/Acetaminophen (Percocet 5/325 Mg Tab) 1 tab PO STAT STA Stop: 08/12/17 19:12 Last Admin: 08/12/17 19:28 Dose: 1 tab MAR Pain Assessment Document 08/12/17 19:28 MS (Rec: 08/12/17 19:31 MS [id number]) Pain Reassessment Is this a pain reassessment? No Sleep Is patient sleeping during reassessment? No Presence of Pain Presence of Pain Yes Pain Scale Used Pain Scale Used Numeric Location Left, Right or Bilateral Left Upper or Lower Lower Pain Location Body Site Back Description Description Intermittent Intensity of Pain at present 9 Pain Behavior Moaning Withdrawal from Touch Aggravating Factors Changing Position Potassium Chloride (K-Dur 20 Meq Er Tab) 40 meq PO STAT STA Stop: 08/12/17 23:15 Trimethoprim/Sulfamethoxazole (Bactrim Ds Tab) 2 tab PO STAT STA PRN Reason: Protocol Stop: 08/12/17 19:12 Last Admin: 08/12/17 19:31 Dose: 2 tab - PA / MODEL DRESSER / Resident Statement / has reviewed & agrees with the documentation as recorded. Disposition/Present on Arrival - Present on Arrival Any Indicators Present on Arrival: No History of DVT/PE: No History of Uncontrolled Diabetes: Yes Urinary Catheter: No History of Decub. Ulcer: No History Surgical Site Infection Following: None - Disposition Have Diagnosis and Disposition been Completed?: Yes Diagnosis: Furuncle, Diabetes mellitus, Hyperglycemia, Hypokalemia Disposition: HOME/ ROUTINE Disposition Time: 19:20 Patient Plan: Discharge Patient Problems: Current Active Problems Problem Status Onset Furuncle Acute Diabetes mellitus Acute Hyperglycemia Acute Hypokalemia Acute Condition: GOOD Additional Instructions: -Discharge home with keflex, bactrim ds, motrin, wash with soap and water, continue your diabete medication, follow up with your own pmd and vp marketing/quality facilitator within 2 days, return to the ER for any new or worsening signs or symptoms. Prescriptions: Cephalexin [cephalexin] 500 mg PO QID #40 cap Ibuprofen [Motrin] 600 mg PO QID PRN #40 tab PRN Reason: Other Sulfamethoxazole/Trimethoprim [Bactrim Ds Tablet] 1 each PO BID #20 tablet Referrals: Magdalene Rosa MD [Medical Doctor] - Follow up with primary Dario Mujica DO [Primary Care Provider] - Follow up with primary Sergey Torres MD [Staff Provider] - Follow up with primary Forms: [facility] ([place]), WORK NOTE
[2017-08-12] MEDS ORDERED: Sodium Chloride 0.9% 1,000 ML IV STA (19:55)
[2017-08-12 20:10] VITALS: TEMP 98.6
[2017-08-12 20:38] LABS: BASO # 0.06 K/mm3 (0.0-2.0); BASO % 0.6 % (0.0-3.0); EOS # 0.2 (0.0-0.7); GRAN # 7.24 (1.4-6.5); GRAN % 67.4 % (50.0-68.0); HEMOGLOBIN 14.5 g/dL (14.0-18.0); LYMPH # 2.2 (1.2-3.4); LYMPH % 20.1 % (22.0-35.0); MEAN CELL VOLUME 81.7 fl (80.0-105.0); MEAN CORPUSCULAR HEMOGLOBIN 28.3 pg (25.0-35.0); MEAN CORPUSCULAR HGB CONC 34.6 g/dl (31.0-37.0); MEAN PLATELET VOLUME 11.9 fl (7.0-11.0); MONO # 1.1 (0.1-0.6); MONO % 9.9 % (1.0-6.0); RBC 5.13 10^6/uL (3.5-6.1); WHITE BLOOD COUNT 10.7 10^3/ul (4.5-11.0)
[2017-08-12 20:59] LABS: ALB/GLOB RATIO 0.9 (1.1-1.8); ALBUMIN 3.8 g/dL (3.0-4.8); ALT/SGPT 117 U/L (7-56); AST/SGOT 42 U/L (17-59); BLOOD UREA NITROGEN 5 mg/dL (7-21); CALCIUM 9.6 mg/dL (8.4-10.5); GFR AFRICAN-AMERICAN > 60; GFR NON-AFRICAN AMERICAN > 60
[2017-08-12] MEDS ORDERED: Insulin Regular 1 UNITS/0.01 ML ML IV STA (21:03)
[2017-08-12] MEDS ORDERED: Sodium Chloride 0.9% 1,000 ML IV SCH (21:15)
[2017-08-12 22:14] VITALS: RESP 16; O2SAT 99
[2017-08-12 23:10] LABS: ALB/GLOB RATIO 0.9 (1.1-1.8); ALBUMIN 3.5 g/dL (3.0-4.8); ALT/SGPT 106 U/L (7-56); AST/SGOT 37 U/L (17-59); BLOOD UREA NITROGEN 5 mg/dL (7-21); GFR AFRICAN-AMERICAN > 60; GFR NON-AFRICAN AMERICAN > 60
[2017-08-12] MEDS ORDERED: Potassium Chloride 20 mEq ER Tab PO STA (23:14)
[2017-08-12 23:34] VITALS: BP 130/88; PULSE 82
== END 2017-08-12 23:33 | disposition home or self-care (01) ==
LOC: ED 18:37
DX: L02.221 Furuncle of abdominal wall (principal); L02.222 Furuncle of back [any part, except buttock and flank]; L02.426 Furuncle of left lower limb; E11.65 Type 2 diabetes mellitus with hyperglycemia; Z79.84 Long term (current) use of oral hypoglycemic drugs; E87.6 Hypokalemia
CPT/HCPCS: 80053; 82948; 85025; 96361; 96372; 96374; 99283; J0696; J7040

== ENCOUNTER 2017-09-24 20:27 | Emergency (ER) | payer BC ==
[2017-09-24 20:27] VITALS: BMI 65.7
[2017-09-24] MEDS ORDERED: TDAP Vaccine 0.5 mL Syr IM ONE (20:44)
[2017-09-24] MEDS ORDERED: Tobramycin 0.3% OPH OINT OS ONE (20:45)
[2017-09-24] MEDS ORDERED: Amoxicillin-Clav 875-125 mg Tab PO STA (20:50)
--- NOTE | 2017-09-24 20:53 | ED PDOC ---
Arrival/HPI - General Chief Complaint: Eye Problem Time Seen by Provider: 09/24/17 20:35 Historian: Patient - History of Present Illness Narrative History of Present Illness (Text): 09/24/17 20:35 pt p/w + 2 days onset of left eye upper eyelid swelling/pain/irritation; no vision changes noted, no photophobia/sensitivity; pt states no fever/chills/ sweats, no cp/sob/palpitations, no abd pain, no n/v, no numbness/tingling, no urinary/bowel changes, no fall/trauma/sick contact, no travel; pt denied any injuries to his eyes recently; pt denied waking in the morning with eye discharge/bleeding; pt has been reading online to use warm compress to be applied to left eye but pt states no significant improvement is noted; pt arrived to Emergency department for further eval pt's without other complaints. PCP: Dr Mujica tetanus: not up to date Time/Duration: < week (2 days) Symptom Onset: Sudden Symptom Course: Worsening Quality: Stabbing, Throbbing Severity Level: Moderate Activities at Onset: Rest Context: Home Past Medical History - Provider Review Nursing Documentation Reviewed: Yes - Travel History Have you recently traveled outside [place] w/in the past 3 mons?: No - Past History Past History: No Previous - Infectious Disease Hx of Infectious Diseases: None - Tetanus Immunization Tetanus Immunization: Unknown - Cardiac Hx Cardiac Disorders: No - Pulmonary Hx Respiratory Disorders: Yes Hx Asthma: Yes - Neurological Hx Neurological Disorder: No - HEENT Hx HEENT Disorder: No - Renal Hx Renal Disorder: No - Endocrine/Metabolic Hx Endocrine Disorders: No - Hematological/Oncological Hx Blood Disorders: No - Integumentary Hx Dermatological Disorder: No - Musculoskeletal/Rheumatological Hx Musculoskeletal Disorders: No - Gastrointestinal Hx Gastrointestinal Disorders: No - Genitourinary/Gynecological Hx Genitourinary Disorders: No - Psychiatric Hx Psychophysiologic Disorder: No Hx Depression: No Hx Emotional Abuse: No Hx Physical Abuse: No Hx Substance Use: No - Past Surgical History Past Surgical History: No Previous - Surgical History Hx Tonsillectomy: Yes - Anesthesia Hx Anesthesia: Yes Hx Anesthesia Reactions: No Hx Malignant Hyperthermia: No - Suicidal Assessment Feels Threatened In Home Enviroment: No Family/Social History - Physician Review Nursing Documentation Reviewed: Yes Family/Social History: No Known Family HX Smoking Status: Light Smoker < 10 Cigarettes Daily Hx Alcohol Use: Yes Hx Substance Use: No Hx Substance Use Treatment: No Allergies/Home Meds Allergies/Adverse Reactions: Allergies No Known Allergies Allergy (Verified 09/24/17 20:39) Review of Systems - Review of Systems Constitutional: Normal. absent: Fatigue, Weight Change, Fevers Eyes: Eye Pain. absent: Vision Changes, Photophobia ENT: Normal Respiratory: Normal. absent: SOB Cardiovascular: Normal. absent: Chest Pain Gastrointestinal: Normal. absent: Abdominal Pain, Nausea, Vomiting Genitourinary Male: Normal Musculoskeletal: Normal Skin: Normal Neurological: Normal. absent: Headache, Dizziness Endocrine: Normal Hemo/Lymphatic: Normal Psychiatric: Normal Physical Exam - Physical Exam Narrative Physical Exam (Text): 09/24/17 20:30 General: alert/awake, GCS = 15, oriented x 3, resting in bed, mildly uncomfortable, cooperative, interactive; NAD Head: NC/AT EYE: PERRLA, EOMI, sclera anicteric, no nystagmus, no photophobia; visual field intact b/l; + left upper eyelid erythema with noted stye-like appearance to the eyelid (more consistent with hordeolum), + tender on exam, mildly fluctuant, NO expressible discharge/bleeding noted; visual acuity: unassisted Left eye 20/30, right eye 20/20, both 20/20 Facial: WNL; no skin erythema noted to the face, no swelling/edema noted Oral: uvula/tongue are midline, no exudate/lesions, no drooling/stridor, no dysphonia; mild dry oral mucosa NECK: intact ROM, no midline tenderness, no nuchal rigidity, no meningeal signs ; no step off Chest: CTA b/l, no w/r/r; no tachypenia, no accessory muscle use noted Cardiac: +S1, +S2, no m/r/r Abdominal: +BS, soft/nd/nt, well nourished/obese patient; no masses/rebound/ guarding/rigidity; no euceda's sign, no mcburney's point tenderness ext: intact ROM, strength 5/5 grossly intact in all limbs, neurovasc intact b/l ; + ambulatory SKIN: cap refill < 1 sec, no ulcerations, no petechiae, no rashes; as described above left upper eyelid infection NEURO: CNII-XII WNL, no facial asymmetries, no slurr speech, oriented x 3 NIH stroke scale ~ 0 Psych: normal insight, normal affect Vital Signs Reviewed: Yes Vital Signs Temp Pulse Resp BP Pulse Ox 09/25/17 00:18 97.7 F 108 H 20 128/86 96 09/24/17 23:22 97.7 F 102 H 20 124/92 H 96 09/24/17 20:37 98 F 95 H 18 144/82 95 Temperature: Afebrile Blood Pressure: Hypertensive Pulse: Regular Respiratory Rate: Normal Appearance: Positive for: Well-Appearing, Non-Toxic, Uncomfortable Pain Distress: None Mental Status: Positive for: Alert and Oriented X 3 - Systems Exam Head: Present: Atraumatic, Normocephalic Medical Decision Making ED Course and Treatment: 09/24/17 20:30 Impression: left upper eyelid infection i have consider all the differential diagnosis regarding pt's chief medical complaints/clinical findings, including but are not limited to: not ghulam- orbital cellulitis, likely hordeolum stye/blepharitis; unlikely corneal abrasion A/P: left upper eyelid infection - accucheck - visual acuity - supportive care - observe/reevaluation 09/24/17 21:10 pt is doing well currently NAD with elevated FS, will obtain lab tests and continue assessment [address] Rebeca Mujica, made aware, agrees with Emergency department mgt/txt, will continue to monitor 2200 pt remained comfortable pt is not in any distress 09/24/17 22:55 pt vital signs improving FS is lowering given pt's complaints and clinical finds/lab results, i gave patient the option for admission, pt refused; pt states he would like to be discharged home pt is made aware of his medical results pt is encouraged continued wound care pt is encouraged monitoring his GLUC values pt is encouraged fluid hydration pt will f/u as directed pt will be discharged home [id number] hanane mujica, no reply 09/24/17 23:[address] mujica to return call, no reply Re-evaluation Time: 22:55 Reassessment Condition: Improved - Lab Interpretations Lab Results: 09/24/17 21:15 09/24/17 21:15 Lab Results 09/25/17 00:05: POC Glucose (mg/dL) 219 H 09/24/17 23:15: POC Glucose (mg/dL) 256 H 09/24/17 22:43: POC Glucose (mg/dL) 399 H 09/24/17 22:30: pO2 51, VBG pH 7.27 L, VBG pCO2 49.0, VBG HCO3 22.5, VBG Total CO2 24.0, VBG O2 Sat (Calc) 89.6 H, VBG Base Excess -4.7 L, VBG Potassium 4.2, Glucose 538 H*, Lactate 1.1, FiO2 21.0, Sodium 133.0, Chloride 96.0 L, Venous Blood Potassium 4.2 09/24/17 21:15: Serum Osmolality 304 H 09/24/17 21:15: Sodium 136, Potassium 4.6, Chloride 96 L, Carbon Dioxide 21, Anion Gap 24 H, BUN 7, Creatinine 0.5 L, Est GFR ( Amer) > 60, Est GFR ( Non-Af Amer) > 60, Random Glucose 573 H* D, Calcium 9.3, Total Bilirubin 1.1, AST 32, ALT 33, Alkaline Phosphatase 127 H, Total Protein 8.6 H, Albumin 4.4, Globulin 4.2, Albumin/Globulin Ratio 1.1, B-Hydroxybutyrate 4.01 H 09/24/17 21:15: WBC 8.7, RBC 5.18, Hgb 14.9, Hct 43.7, MCV 84.4, MCH 28.8, MCHC 34.1, RDW 14.5, Plt Count 259, MPV 12.0 H, Gran % 64.7, Lymph % (Auto) 24.9, Pitkin % (Auto) 6.8 H, Eos % (Auto) 3.1, Baso % (Auto) 0.5, Gran # 5.63, Lymph # ( Auto) 2.2, Pitkin # (Auto) 0.6, Eos # (Auto) 0.3, Baso # (Auto) 0.04 09/24/17 20:58: POC Glucose (mg/dL) 472 H* I have reviewed the lab results: Yes Interpretation: Abnormal lab values (elevated FS; slight gap, no electrolyte derrangements; no leukocytosis) - Medication Orders Current Medication Orders: Discontinued Medications Ampicillin Sodium/Sulbactam (Sodium 3 gm/ Sodium Chloride) 100 mls @ 100 mls/ hr IVPB STAT STA PRN Reason: Protocol Stop: 09/24/17 22:00 Last Admin: 09/24/17 21:29 Dose: 100 mls/hr eMAR Start Stop Document 09/24/17 21:29 (Rec: 09/24/17 21:29 [id number] Intravenous Solution Start Date 09/24/17 Start Time 21:29 Sodium Chloride (Sodium Chloride 0.9%) 1,000 mls @ 999 mls/hr IV .Q1H1M STA Stop: 09/24/17 22:02 Last Admin: 09/24/17 21:33 Dose: 999 mls/hr eMAR Start Stop Document 09/24/17 21:33 (Rec: 09/24/17 21:33 [id number] Intravenous Solution Start Date 09/24/17 Start Time 21:33 Insulin Human Regular (Humulin R) 14 units IV ONCE ONE Stop: 09/24/17 21:55 Last Admin: 09/24/17 22:24 Dose: 14 units eMAR Start Stop Document 09/24/17 22:24 (Rec: 09/24/17 22:25 [id number] Intravenous Solution Start Date 09/24/17 Start Time 22:25 Insulin Human Regular (Humulin R) 6 units IV ONCE ONE Stop: 09/24/17 22:53 Last Admin: 09/24/17 23:00 Dose: 6 units eMAR Start Stop Document 09/24/17 23:00 (Rec: 09/24/17 23:01 [id number] Intravenous Solution Start Date 09/24/17 Start Time 23:01 Tetanus/Reduced Diphtheria/Acell Pertussis (Boostrix Vaccine Inj) 0.5 ml IM .ONCE ONE Stop: 09/24/17 20:45 Last Admin: 09/24/17 21:29 Dose: 0.5 ml MAR Immunization Data Document 09/24/17 21:29 (Rec: 09/24/17 21:30 [id number] Immunization Data Vaccine Information Sheet Given Yes Vaccine Information Sheet Given Date 09/24/17 Immunization Registry Document 09/24/17 21:29 (Rec: 09/24/17 21:30 [id number] Immunization Registry Consent Date 06/17/17 Tobramycin Sulfate (Tobrex 0.3% Ophth Oint) 0.5 appl OS ONCE ONE Stop: 09/24/17 20:46 Last Admin: 09/24/17 21:32 Dose: 0.5 applic Disposition/Present on Arrival - Present on Arrival Any Indicators Present on Arrival: No History of DVT/PE: No History of Uncontrolled Diabetes: Yes Urinary Catheter: No History of Decub. Ulcer: No History Surgical Site Infection Following: None - Disposition Have Diagnosis and Disposition been Completed?: Yes Diagnosis: Blepharitis of left upper eyelid, Hordeolum externum left upper eyelid, Acute hyperglycemia Diagnosis: (Ruled Out): Stye Disposition: HOME/ ROUTINE Disposition Time: 23:00 Patient Plan: Discharge Condition: STABLE Discharge Instructions (ExitCare): Stye (Hordeolum), Hyperglycemia, Adult, Blepharitis, Blood Glucose Monitoring Print Language: BELIZEAN Additional Instructions: Make sure to see your doctor in 1-2 days DRINK PLENTY OF FLUIDS DONT rub your eyes keep wound clean and dry WARM compress to your left eye every 20min/hr daily take your medications as prescribed RETURN TO ED IF worse pain, cant breath, CANT SEE, severe eye pain, severe left facial swelling/skin redness, persistent vomiting, high fever >101-102 for hours , altered behavior, slurr speech, facial changes, focal weakness (arm/leg or both), unable to urinate, heavy/persistent bleeding, passing out, chest pain, or other medical emergencies Prescriptions: Amoxicillin/Clavulanate [Augmentin 875 MG-125 MG] 1 tab PO BID #14 tab Tobramycin/Dexamethasone [Tobradex Eye Ointment] 0.5 inch OS QID 7 Days #1 Referrals: Dario Mujica DO [Primary Care Provider] - Follow up with primary Merlin Arevalo MD [Staff Provider] - Follow up with primary Forms: [employer] (Latvian)
[2017-09-24] MEDS ORDERED: Sodium Chloride 0.9% 1,000 ML IV STA (21:02)
[2017-09-24 21:40] LABS: BASO # 0.04 K/mm3 (0.0-2.0); BASO % 0.5 % (0.0-3.0); EOS # 0.3 (0.0-0.7); EOS % 3.1 % (1.5-5.0); GRAN # 5.63 (1.4-6.5); GRAN % 64.7 % (50.0-68.0); HEMOGLOBIN 14.9 g/dL (14.0-18.0); LYMPH # 2.2 (1.2-3.4); LYMPH % 24.9 % (22.0-35.0); MEAN CELL VOLUME 84.4 fl (80.0-105.0); MEAN CORPUSCULAR HEMOGLOBIN 28.8 pg (25.0-35.0); MEAN CORPUSCULAR HGB CONC 34.1 g/dl (31.0-37.0); MONO # 0.6 (0.1-0.6); MONO % 6.8 % (1.0-6.0); RBC 5.18 10^6/uL (3.5-6.1); RED CELL DISTRIBUTION WIDTH 14.5 % (11.5-14.5); WHITE BLOOD COUNT 8.7 10^3/ul (4.5-11.0)
[2017-09-24] MEDS ORDERED: Insulin Regular 1 UNITS/0.01 ML ML IV ONE ×2 (21:54→22:52)
[2017-09-24 21:56] LABS: ALB/GLOB RATIO 1.1 (1.1-1.8); ALBUMIN 4.4 g/dL (3.0-4.8); ALT/SGPT 33 U/L (7-56); AST/SGOT 32 U/L (17-59); BLOOD UREA NITROGEN 7 mg/dL (7-21); CALCIUM 9.3 mg/dL (8.4-10.5); GFR AFRICAN-AMERICAN > 60; GFR NON-AFRICAN AMERICAN > 60
[2017-09-24 22:40] LABS: VENOUS BLOOD GAS BASE EXCESS -4.7 mmol/L (0.0-2.0); VENOUS BLOOD GAS PO2 51 mm/Hg (30-55); VENOUS BLOOD PH 7.27 (7.32-7.43)
[2017-09-24 23:22] VITALS: RESP 20; TEMP 97.7; O2SAT 96
[2017-09-25 00:19] VITALS: BP 128/86; PULSE 108
== END 2017-09-25 00:15 | disposition home or self-care (01) ==
LOC: ED 20:27
DX: H01.004 Unspecified blepharitis left upper eyelid (principal); H00.014 Hordeolum externum left upper eyelid; R73.9 Hyperglycemia, unspecified; Z23 Encounter for immunization
CPT/HCPCS: 80053; 82009; 82803; 82948; 83930; 85025; 90471; 90715; 96374; 96375; 96376; 99284; J0295; J7040

== ENCOUNTER 2018-08-06 07:35 | Emergency (ER) | payer BC ==
[2018-08-06 07:36] VITALS: BMI 65.7
[2018-08-06 07:45] VITALS: RESP 18
--- NOTE | 2018-08-06 08:06 | ED PDOC ---
Arrival/HPI - General Chief Complaint: Flu-like Symptoms Historian: Patient - History of Present Illness Narrative History of Present Illness (Text): 08/06/18 08:04 27 year old male, with no significant past medical history, presents to the emergency department complaining of sore throat for the past 4 days. Patient reports it is painful to swallow, but he is able to tolerate PO. He also states his glands in his throat feel swollen. Patient denies any recent travel. Patient denies any fever, chills, chest pain, shortness of breath, nausea, vomiting, diarrhea, headache, dizziness, or any other complaints. Time/Duration: Other (4 days) Symptom Onset: Gradual Symptom Course: Unchanged Activities at Onset: Light Context: Home Past Medical History - Provider Review Nursing Documentation Reviewed: Yes - Past History Past History: No Previous - Infectious Disease Hx of Infectious Diseases: None - Tetanus Immunization Tetanus Immunization: Unknown - Cardiac Hx Cardiac Disorders: No - Pulmonary Hx Respiratory Disorders: Yes Hx Asthma: Yes - Neurological Hx Neurological Disorder: No - HEENT Hx HEENT Disorder: No - Renal Hx Renal Disorder: No - Endocrine/Metabolic Hx Diabetes Mellitus Type 2: Yes - Hematological/Oncological Hx Blood Disorders: No - Integumentary Hx Dermatological Disorder: No - Musculoskeletal/Rheumatological Hx Musculoskeletal Disorders: No - Gastrointestinal Hx Gastrointestinal Disorders: No - Genitourinary/Gynecological Hx Genitourinary Disorders: No - Psychiatric Hx Psychophysiologic Disorder: No Hx Depression: No Hx Emotional Abuse: No Hx Physical Abuse: No Hx Substance Use: No - Past Surgical History Past Surgical History: No Previous - Surgical History Hx Tonsillectomy: Yes - Anesthesia Hx Anesthesia: Yes Hx Anesthesia Reactions: No Hx Malignant Hyperthermia: No - Suicidal Assessment Feels Threatened In Home Enviroment: No Family/Social History - Physician Review Nursing Documentation Reviewed: Yes Family/Social History: No Known Family HX Smoking Status: Light Smoker < 10 Cigarettes Daily Hx Alcohol Use: Yes Frequency of alcohol use: Socially Hx Substance Use: No Hx Substance Use Treatment: No Allergies/Home Meds Allergies/Adverse Reactions: Allergies No Known Allergies Allergy (Verified 08/06/18 07:45) Home Medications: Home Meds Medication Instructions Recorded Confirmed SITagliptin [Januvia] 50 mg PO DAILY 08/06/18 08/06/18 Review of Systems - Physician Review All systems were reviewed & negative as marked: Yes - Review of Systems Constitutional: absent: Fevers, Other (chills) ENT: Sore Throat Respiratory: absent: SOB Cardiovascular: absent: Chest Pain Gastrointestinal: absent: Diarrhea, Nausea, Vomiting Neurological: absent: Headache, Dizziness Physical Exam Vital Signs Reviewed: Yes Vital Signs Temp Pulse Resp BP Pulse Ox 08/06/18 07:42 97.3 F L 96 H 18 131/93 H 96 Temperature: Afebrile Blood Pressure: Normal Pulse: Tachycardic Respiratory Rate: Normal Appearance: Positive for: Well-Appearing, Non-Toxic, Comfortable Pain Distress: None Mental Status: Positive for: Alert and Oriented X 3 - Systems Exam Head: Present: Atraumatic, Normocephalic Pupils: Present: PERRL Extroacular Muscles: Present: EOMI Conjunctiva: Present: Normal Mouth: Present: Moist Mucous Membranes Pharnyx: Present: ERYTHEMA, EXUDATE (to the back of the pharnyx) Neck: Present: Normal Range of Motion Respiratory/Chest: Present: Clear to Auscultation, Good Air Exchange. No: Respiratory Distress, Accessory Muscle Use Cardiovascular: Present: Regular Rate and Rhythm, Normal S1, S2. No: Murmurs Abdomen: No: Tenderness, Distention, Peritoneal Signs Neurological: Present: GCS=15, Speech Normal Skin: Present: Warm, Dry, Normal Color. No: Rashes Psychiatric: Present: Alert, Oriented x 3, Normal Insight, Normal Concentration Medical Decision Making ED Course and Treatment: 08/06/18 08:04 Impression: 27 year old male presents complaining of sore throat for the past 4 days. Plan: -- Motrin Tab -- Reassess and disposition Progress Notes: Patient is in no acute distress. I have discussed the plan with the patient, who expresses understanding. Patient in agreement with plan to be discharged home with prescription of Amoxicillin and Ibuprofen. Patient is stable for discharge. Patient was instructed to follow up with physician or return if symptoms worsen or new concerning symptoms arise. - Medication Orders Current Medication Orders: Ibuprofen (Motrin Tab) 600 mg PO STAT STA Stop: 08/06/18 08:02 - Scribe Statement The provider has reviewed the documentation as recorded by the Lenny Carrillo Provider Scribe Attestation: All medical record entries made by the Rosalesibchantell were at my direction and person ally dictated by me. I have reviewed the chart and agree that the record accurately reflects my personal performance of the history, physical exam, medical decision making, and the department course for this patient. I have also personally directed, reviewed, and agree with the discharge instructions and disposition. Disposition/Present on Arrival - Present on Arrival Any Indicators Present on Arrival: No History of DVT/PE: No History of Uncontrolled Diabetes: Yes Urinary Catheter: No History of Decub. Ulcer: No History Surgical Site Infection Following: None - Disposition Have Diagnosis and Disposition been Completed?: Yes Diagnosis: Pharyngitis Disposition: HOME/ ROUTINE Disposition Time: 08:00 Condition: GOOD Discharge Instructions (ExitCare): Strep Throat (DC) Additional Instructions: DARREL MICHAELS, thank you for letting us take care of you today. The emergency medical care you received today was directed at your acute symptoms. If you were prescribed any medication, please fill it and take as directed. It may take several days for your symptoms to resolve. Return to the Emergency Department if your symptoms worsen, do not improve, or if you have any other problems. Please contact your doctor or call one of the physicians/clinics you have been referred to that are listed on the Patient Visit Information form that is included in your discharge packet. Bring any paperwork you were given at discharge with you along with any medications you are taking to your follow up visit. Our treatment cannot replace ongoing medical care by a primary care provider outside of the emergency department. Thank you for allowing the [facility] team to be part of your care today. Follow up with your primary care doctor in 3-4 days for re-evaluation and further management. Prescriptions: Amoxicillin 875 mg PO BID #14 tablet Ibuprofen [Motrin] 600 mg PO Q6 PRN #20 tab PRN Reason: Pain, Moderate (4-7) Referrals: Dario Mujica DO [Staff Provider] - Follow up with primary Forms: [employer] (Russian), WORK NOTE
[2018-08-06 08:30] VITALS: BP 125/73; PULSE 79; TEMP 98; O2SAT 99
== END 2018-08-06 08:26 | disposition home or self-care (01) ==
LOC: ED 07:35
DX: J02.9 Acute pharyngitis, unspecified (principal); F17.210 Nicotine dependence, cigarettes, uncomplicated